=== PATIENT | female | born 1945 ===

== ENCOUNTER 2023-09-13 09:03 | Outpatient (CLI) | payer MEDICARE, SELFPAY | END 2023-09-13 09:04 | disposition home or self-care (01) | LOC: ANHBWCAUD 09:04 | PROVIDERS: PCP Family Medicine; Visit Provider Family Medicine | DX: H90.3 Sensorineural hearing loss, bilateral (principal) | CPT/HCPCS: 92557; 92567 ==

== ENCOUNTER 2023-11-28 15:00 | Outpatient (RCR) | payer MEDICARE, SELFPAY | END 2024-01-15 23:59 | disposition home or self-care (01) | LOC: ANHBWCAUD 15:00 | PROVIDERS: PCP Family Medicine; Visit Provider Family Medicine | DX: Z46.1 Encounter for fitting and adjustment of hearing aid (principal) | CPT/HCPCS: 99199; V5261 ==